=== PATIENT | female | born 1990 | race Caucasian/White ===

== ENCOUNTER 2018-12-23 14:06 | Emergency (ER) | payer MEDICAID ==
[~2018-12-23] VITALS: Ht 165.1 cm; Wt 59.0 kg
[~2018-12-23 14:06] MED LIST: ACETAMINOPHEN-1 EAC1 PO; BACTRIM DS TAB1 EACH PO; CEPHALEXIN 500500 M3 PO; NAPROSYN500 MG PO; NOHOMEMEDICATIONS; ROBAXIN500 MG PO; TORADOL 10 MG T10 MG PO
[2018-12-23] MEDS ORDERED: HYDROCORTISO28.35 G1 TOP (15:07)
[2018-12-23] MEDS ORDERED: KEFLEX500 M1 PO (15:07)
[2018-12-23 15:32] VITALS: BP 120/74
== END 2018-12-23 15:32 | disposition home or self-care (01) ==
LOC: M.ERS 14:06
DX: L25.9 Unspecified contact dermatitis, unspecified cause (principal); F17.200 Nicotine dependence, unspecified, uncomplicated; Z88.5 Allergy status to narcotic agent; Z88.6 Allergy status to analgesic agent; Z88.8 Allergy status to other drugs, medicaments and biological substances